=== PATIENT | female | born 1950 ===

== ENCOUNTER 2017-07-28 07:25 | Day surgery (SDC) | payer MEDICARE ==
[2016-06-23 10:23] VITALS: BMI 25.4
[2017-07-28] MEDS ORDERED: Propofol 10 mg/ml Inj (20 ML) ONE (09:12)
[2017-07-28] MEDS ORDERED: Lactated Ringer's 1,000 ML IV ONE (09:13)
[2017-07-28 09:26] VITALS: O2SAT 100
[2017-07-28 09:54] VITALS: TEMP 97
[2017-07-28 10:37] VITALS: BP 117/43; PULSE 67; RESP 18
== END 2017-07-28 11:00 | disposition home or self-care (01) ==
LOC: C.ENDO 07:25
PROVIDERS: ATTEND Internal Medicine Gastroenterology
DX: Z12.11 Encounter for screening for malignant neoplasm of colon (principal); R63.4 Abnormal weight loss; K29.70 Gastritis, unspecified, without bleeding; D12.4 Benign neoplasm of descending colon; K64.8 Other hemorrhoids
CPT/HCPCS: 43239; 45380; 82948; 88305; J2001; J2704; J7120

== ENCOUNTER 2018-10-11 11:38 | Outpatient (CLI) | payer MEDICARE, MEDICAID | END 2018-10-11 11:39 | disposition home or self-care (01) | LOC: C.RADH 11:38 | DX: J69.0 Pneumonitis due to inhalation of food and vomit (principal) ==